=== PATIENT | female | born 1960 | race Caucasian/White ===

== ENCOUNTER → 2016-10-14 | Outpatient (CLI) | payer BC ==
[~2016-10-14] MED LIST: 00186-0372-20 IH; CARAFATE 1GM1 G PO; CIPRO 500MG TA500 MG PO; CLINDAMYCIN HC300 MG PO; COREG 6.256.25 MG/TA PO; FEXOFENADINE180 MG PO; HCTZ 25MG TAB25 MG PO; HCTZ 25MG25 MG PO; IMITREX100 MG PO; LEVAQUIN 750MG750 MG PO; LEVBID0.375 MG PO; LIPITOR 40MG TA40 MG PO; LORTAB 5/500 501 TAB PO; LOTENSIN 1010 MG/TAB PO; LOTENSIN40 MG PO; LOTREL 10 MG-201 CAP PO; LOTREL 10 MG-401 CAP PO; METOPROLOL25 MG PO; MIDRIN 325 MG-11 CAP PO; NORVASC 10MG10 MG PO; SPIRIVA RE2.5 MCG/Ac IH; SULFAMETH/TRIME1 TA1 PO; TOPAMAX50 MG PO; XANAX 0.5MG0.5 MG PO
== END ==
LOC: COL.VAS 15:21
DX: M79.89 Other specified soft tissue disorders (principal); M79.662 Pain in left lower leg

== ENCOUNTER → 2016-11-21 | Outpatient (CLI) | payer BC | LOC: COL.RAD 11:23 | DX: Z01.89 Encounter for other specified special examinations (principal) ==

== ENCOUNTER → 2016-11-24 | Outpatient (CLI) | payer BC | LOC: COL.RAD 13:10 | DX: I70.0 Atherosclerosis of aorta (principal); K66.8 Other specified disorders of peritoneum; M79.605 Pain in left leg; Z90.710 Acquired absence of both cervix and uterus | CPT/HCPCS: Q9967 ==

== ENCOUNTER 2017-02-11 23:33 | Emergency (ER) | payer BC ==
[~2017-02-11] VITALS: Ht 170.2 cm; Wt 109.1 kg
[~2017-02-11 23:33] MED LIST changes: -LIPITOR 40MG TA40 MG PO; +LIPITOR 80MG80 MG PO
[2017-02-11 23:41] VITALS: TEMP 96.9
[2017-02-12 00:21] LABS: BASO # 0.1 (0.0-0.2); BASO % 1.2 % (0.0-2.0); EOS # 0.4 (0.0-0.7); EOS % 6.1 % (0-4.0); GRAN # 3.7 (1.4-6.5); GRAN % 64.5 % (42.2-75.2); HEMOGLOBIN 12.4 g/dl (12.5-16.0); LYMPH # 1.2 (1.2-3.4); MEAN CELL VOLUME 96 fl (80.0-100.0); MEAN CORPUSCULAR HEMOGLOBIN 33 pg (27.0-31.0); MEAN CORPUSCULAR HGB CONC 34 g/dl (33.0-37.0); MEAN PLATELET VOLUME 8.6 fl (7.4-10.4); MONO # 0.5 (0.1-0.6); PLATELET COUNT 270 K/mm3 (130-400); RED BLOOD COUNT 3.75 M/mm3 (4.10-5.30); WHITE BLOOD COUNT 5.8 K/mm3 (4.8-10.8)
[2017-02-12 00:33] LABS: PROTHROMBIN TIME 11.3 SECONDS (9.7-12.8)
[2017-02-12 00:34] LABS: ADJUSTED CALCIUM 9.3 mg/dL (8.4-10.2); ALBUMIN 4.9 gm/dL (3.5-5.0); BILIRUBIN,TOTAL 0.5 mg/dL (0.0-1.0); CREATININE, serum 0.56 mg/dL (0.52-1.25); POTASSIUM 4.1 mmol/L (3.4-5.0); TOTAL PROTEIN 8.4 gm/dL (6.4-8.2)
[2017-02-12 00:35] LABS: PARTIAL THROMBOPLASTIN TIME 31.2 SECONDS (26.0-37.0)
[2017-02-12 02:50] VITALS: BP 117/62; PULSE 78
== END 2017-02-12 02:50 | disposition home or self-care (01) ==
LOC: COL.ER 23:33
PROVIDERS: Emergency Medicine
DX: S09.90XA Unspecified injury of head, initial encounter (principal); S01.112A Laceration without foreign body of left eyelid and periocular area, initial encounter; F10.129 Alcohol abuse with intoxication, unspecified; I10 Essential (primary) hypertension; Z87.891 Personal history of nicotine dependence; W10.9XXA Fall (on) (from) unspecified stairs and steps, initial encounter; W22.01XA Walked into wall, initial encounter; Y92.009 Unspecified place in unspecified non-institutional (private) residence as the place of occurrence of the external cause; Y90.7 Blood alcohol level of 200-239 mg/100 ml

== ENCOUNTER → 2017-07-08 | Outpatient (CLI) | payer BC | LOC: MC.RAD 11:40 | DX: Z12.31 Encounter for screening mammogram for malignant neoplasm of breast (principal); R92.8 Other abnormal and inconclusive findings on diagnostic imaging of breast ==

== ENCOUNTER → 2017-08-04 | Outpatient (CLI) | payer BC | LOC: MC.RAD 13:42 | DX: N60.02 Solitary cyst of left breast (principal) ==

== ENCOUNTER → 2019-10-10 | Outpatient (CLI) | payer OTHER | LOC: COL.RAD 10-06 08:30 | DX: K58.9 Irritable bowel syndrome, unspecified (principal); R79.89 Other specified abnormal findings of blood chemistry; R10.2 Pelvic and perineal pain ==

== ENCOUNTER → 2019-10-14 | Outpatient (CLI) | payer OTHER | LOC: COL.RAD 12:43 | DX: J44.9 Chronic obstructive pulmonary disease, unspecified (principal) | CPT/HCPCS: Q9967 ==

== ENCOUNTER 2019-11-06 00:19 | Inpatient (IN) | payer OTHER ==
[~2019-11-06] VITALS: Ht 170.2 cm; Wt 119.7 kg
[2019-11-06] VITALS (244 sets, daily range): BP systolic 129–151; BP diastolic 68–94; PULSE 70–79; TEMP 8.1; O2SAT 89–100
[2019-11-06 00:56] LABS: BASO # 0.1 (0.0-0.2); BASO % 0.6 % (0.0-2.0); EOS # 0.4 (0.0-0.7); EOS % 5.3 % (0-4.0); GRAN # 4.8 (1.4-6.5); GRAN % 59.9 % (42.2-75.2); HEMATOCRIT 27.9 % (37.0-47.0); HEMOGLOBIN 8.5 g/dl (12.5-16.0); LYMPH # 2.1 (1.2-3.4); LYMPH % 26.2 % (20.0-51.0); MEAN CELL VOLUME 78 fl (80.0-100.0); MEAN CORPUSCULAR HEMOGLOBIN 24 pg (27.0-31.0); MEAN CORPUSCULAR HGB CONC 31 g/dl (33.0-37.0); MEAN PLATELET VOLUME 10.6 fl (7.4-10.4); MONO # 0.6 (0.1-0.6); MONO % 7.7 % (1.7-9.3); PLATELET COUNT 249 K/mm3 (130-400); RED BLOOD COUNT 3.58 M/mm3 (4.10-5.30); REDCELL DISTRIBUTION WIDTH-CV 16.2 % (11.5-14.5)
[2019-11-06 01:01] LABS: INR 1.2 (0.8-3.0); PROTHROMBIN TIME 13.1 SECONDS (9.7-12.8)
[2019-11-06 01:05] LABS: ALANINE AMINOTRANSFERASE 81 U/L (4-34); ALBUMIN 3.8 gm/dL (3.5-5.0); ALKALINE PHOSPHATASE 78 U/L (50-136); ANION GAP 12 mmol/L (7-16); AST,SGOT 81 U/L (15-37); BILIRUBIN,TOTAL 0.5 mg/dL (0.0-1.0); BLOOD UREA NITROGEN 7 mg/dL (7-17); CALCIUM 8.1 mg/dL (8.4-10.2); CARBON DIOXIDE 19 mmol/L (22-30); CHLORIDE 105 mmol/L (98-107); GLUCOSE 95 mg/dL (74-106); LIPASE 202 U/L (23-300); SODIUM 135 mmol/L (137-145); TOTAL PROTEIN 6.9 gm/dL (6.4-8.2)
[2019-11-06 01:46] LABS: TROPONIN-I < 0.012 ng/mL (0.000-0.035)
[2019-11-06 03:04] LABS: PARTIAL THROMBOPLASTIN TIME 31.2 SECONDS (26.0-37.0)
[2019-11-06 03:43] LABS: IRON,SERUM 35 ug/dL (35-150)
[2019-11-06 03:52] LABS: TOTAL IRON BINDING CAPACITY 409 ug/dL (265-497)
[2019-11-06] MEDS ORDERED: LASIX 40MG TABL40 MG PO (03:56)
[2019-11-06] MEDS ORDERED: MOBIC15 MG PO (03:57)
[2019-11-06] MEDS ORDERED: NEXIUM 20MG20 MG PO (03:57)
[2019-11-06 04:14] LABS: MAGNESIUM 1.9 mg/dL (1.6-2.3)
[2019-11-06 04:27] LABS: TROPONIN-I 3 HR POST INITIAL < 0.012 ng/mL (0.000-0.034)
--- NOTE | 2019-11-06 04:32 | NUR ---
Report called over by NILA Whitt in the ED. Patient will be brought over shortly.
--- NOTE | 2019-11-06 04:50 | NUR ---
Patient arirves at this time via ED cart. Patient is able to walk to transfer to unit bed, but needs assistance of one for stability. Patient attached to unit monitoring equipment and vitals obtained. When asked if she is in pain, she denies and says that "it is just more annoying than anything" and does not rate pain. Admission assessment complete, see admission B for details. Patient has a purse with her, she does have $105.00 with her and refuses the safe. Patient requests to use the restroom, assisted with walking to the toilet and return to bed. Patient would now like to rest. Will continue to monitor. Call light within reach.
[2019-11-06] MEDS ORDERED: COREG12.5 MG PO (05:11)
[2019-11-06] MEDS ORDERED: ASPIRIN 81M81 MG/TA2 PO (05:12)
[2019-11-06 05:17] LABS: CALCIUM 9.8 mg/dL (8.4-10.2); CREATININE, serum 0.54 (0.52-1.25); POTASSIUM 4.1 mmol/L (3.4-5.0)
--- NOTE | 2019-11-06 07:15 | NUR ---
Bedside report given to NILA Hernandez
[2019-11-06 07:37] LABS: BASO % 0.5 % (0.0-2.0); EOS # 0.5 (0.0-0.7); EOS % 7.4 % (0-4.0); GRAN # 3.5 (1.4-6.5); GRAN % 57.3 % (42.2-75.2); LYMPH # 1.6 (1.2-3.4); LYMPH % 26.3 % (20.0-51.0); MEAN CELL VOLUME 77 fl (80.0-100.0); MEAN CORPUSCULAR HGB CONC 31 g/dl (33.0-37.0); MEAN PLATELET VOLUME 10.8 fl (7.4-10.4); MONO # 0.5 (0.1-0.6); MONO % 8.3 % (1.7-9.3); PLATELET COUNT 253 K/mm3 (130-400); RED BLOOD COUNT 3.95 M/mm3 (4.10-5.30); REDCELL DISTRIBUTION WIDTH-CV 16.3 % (11.5-14.5)
[2019-11-06 07:45] LABS: HEMATOCRIT 30.4 % (37.0-47.0); HEMOGLOBIN 9.4 g/dl (12.5-16.0); MEAN CORPUSCULAR HEMOGLOBIN 24 pg (27.0-31.0)
--- NOTE | 2019-11-06 11:18 | NUR ---
Plan: To return home with Quinten [phone] as care support and EMR. Patient does not currently have a DPOA, DPOA form left with patient to sign. Patient currently resides in [place]. Assess: SW's met with patient at her bedside. patient reports that she uses a walker, and that she is having hip surgery November 27. Patient reports that her PCP is Dr. Swain, and she does have an upcoming appointment although she was not sure when(she indicated having many). Patient reports that she gets her medications from [facility], with no concerns. patient denied having any care concerns, and a need for HHS at this time. Action: No additional concerns identified. SW may want to follow up to collect DPOA information.
--- NOTE | 2019-11-06 12:09 | NUR ---
at patients beside. He said he will order a lexiscan for patient.
--- NOTE | 2019-11-06 13:10 | NUR ---
Report given to NILA Lawrence.
--- NOTE | 2019-11-06 13:28 | NUR ---
Patient brought upstairs to medical floor in rm 309. RN notified and chart placed in correct location.
--- NOTE | 2019-11-06 17:32 | NUR ---
Pt up to room around 1330 from ICU. Pt A&O, independent in room, on room air. Pt has LAC IV that flushes w/o complications. Heart RRR, LS clear, BS activeX4. Pulses strong bilaterally. Pt denies chest pain, N/V/D. Pt educated on need for stool occult sample. Pt denies SOB. No further needs expressed at this time.
[2019-11-07] VITALS (12 sets, daily range): BP systolic 137–160; BP diastolic 62–85; PULSE 61–92; TEMP 97.6–98.8
--- NOTE | 2019-11-07 00:50 | NUR ---
Patient has rested well so far this shift. Continues on telemetry. INT noted to left AC. Requires SBA with ambulation. Patient required 4 units of Novolog at HS. Education provided on insulin as patient has never taken it before. Patient denies pain at time of assessment. NPO at midnight for Lexiscan in the morning. Denies any further needs. Will continue to monitor.
[2019-11-07 08:12] LABS: BASO % 0.6 % (0.0-2.0); EOS # 0.5 (0.0-0.7); EOS % 7.2 % (0-4.0); GRAN # 4.2 (1.4-6.5); GRAN % 62.5 % (42.2-75.2); LYMPH # 1.5 (1.2-3.4); LYMPH % 21.9 % (20.0-51.0); MEAN CELL VOLUME 78 fl (80.0-100.0); MEAN CORPUSCULAR HGB CONC 31 g/dl (33.0-37.0); MEAN PLATELET VOLUME 10.3 fl (7.4-10.4); MONO # 0.5 (0.1-0.6); MONO % 7.5 % (1.7-9.3); PLATELET COUNT 262 K/mm3 (130-400); RED BLOOD COUNT 4.12 M/mm3 (4.10-5.30); REDCELL DISTRIBUTION WIDTH-CV 16.6 % (11.5-14.5); RETIC # 0.06 M/mm3 (0.02-0.16); RETIC % 1.3 % (0.5-3.52)
[2019-11-07 08:13] LABS: HEMATOCRIT 32.3 % (37.0-47.0); HEMOGLOBIN 9.9 g/dl (12.5-16.0); MEAN CORPUSCULAR HEMOGLOBIN 24 pg (27.0-31.0)
[2019-11-07 08:21] LABS: ALBUMIN 4.5 gm/dL (3.5-5.0); BILIRUBIN,TOTAL 0.7 mg/dL (0.0-1.0); CREATININE, serum 0.57 (0.52-1.25); POTASSIUM 3.9 mmol/L (3.4-5.0); TOTAL PROTEIN 7.9 gm/dL (6.4-8.2)
--- NOTE | 2019-11-07 20:00 | NUR ---
Report received, assumed care for inspector machine cut glass. Assessment complete. A&Ox3. VS stable. Denies shortness of breath/chest pain/nausea. Tolerating PO. Voiding without difficulty. Plan of care discussed for NPO after midnight for heart cath in AM. Verbalizes understanding. Denies questions/concerns. Call light in reach. Will monitor.
--- NOTE | 2019-11-07 22:00 | NUR ---
Called with c/o left hip pain. Rating pain 6/10 on pain scale described as throbbing. Hydrocodone per dr order. Will monitor.
--- NOTE | 2019-11-07 23:45 | NUR ---
Called with c/o indigestion. Maalox given per order.
[2019-11-08] VITALS (17 sets, daily range): BP systolic 125–1434; BP diastolic 58–89; PULSE 58–71; TEMP 97–98.9
--- NOTE | 2019-11-08 06:08 | NUR ---
Rested well this shift. Did complain of hip pain x2-received hydrocodone per dr order. Has remained NPO since midnight except sips for taking medications. No c/o chest pain/shortness of breath/nausea. Did have some indigestion that was managed with maalox. Consent for heart cath signed and on front of charge. Call light in reach. Will monitor .
[2019-11-08 06:41] LABS: HEMATOCRIT 32.7 % (37.0-47.0); HEMOGLOBIN 9.9 g/dl (12.5-16.0); MEAN CELL VOLUME 78 fl (80.0-100.0); MEAN CORPUSCULAR HEMOGLOBIN 24 pg (27.0-31.0); MEAN CORPUSCULAR HGB CONC 30 g/dl (33.0-37.0); MEAN PLATELET VOLUME 10.7 fl (7.4-10.4); PLATELET COUNT 248 K/mm3 (130-400); REDCELL DISTRIBUTION WIDTH-CV 16.3 % (11.5-14.5)
[2019-11-08 06:47] LABS: CALCIUM 9.9 mg/dL (8.4-10.2); CREATININE, serum 0.59 (0.52-1.25); POTASSIUM 3.5 mmol/L (3.4-5.0)
[2019-11-08 08:34] LABS: INR 1.1 (0.8-3.0); PROTHROMBIN TIME 12.2 SECONDS (9.7-12.8)
[2019-11-08 08:37] LABS: PARTIAL THROMBOPLASTIN TIME 33.8 SECONDS (26.0-37.0)
--- NOTE | 2019-11-08 14:41 | NUR ---
PATIENT DOWN TO FOOT GATHERER ACCOMPANIED BY XAVIER DOTSON. AT TIME OF TRANSFER PATIENT A/O X 4. DENIES NEEDS OR CONCERNS. VERBAL REPORT GIVEN TO XAVIER. LEFT UNIT VIA BED.
--- NOTE | 2019-11-08 14:48 | NUR ---
SEE MERGE DOCUMENTATION FOR MEDICATION ADMINISTRATION TIMES AND INTRA/POST PROCEDURE SEDATION ASSESSMENTS. RIGHT HAND BARBEAU TEST POSITIVE.
--- NOTE | 2019-11-08 16:12 | NUR ---
PATIENT BACK TO ROOM FROM DAM OPERATOR. PATIENT A/O X 4. REPORTS C/O LEFT HIP PAIN. RIGHT GROIN ACESS SITE WNL. DRESSING CDI. ANGIO SEAL FOR CLOSURE PER DAM OPERATOR RN. SEE FLOW SHEET FOR FVS WNL. PATIENT TALKING ON PHONE TO . NO QUESTIONS OR CONCERNS AT THIS TIME.
--- NOTE | 2019-11-08 19:53 | NUR ---
Received report from NILA Ibrahim. PT laying flat in bed. A/Ox4. VSS. C/O tolerable pain to lt hip 06/06, prn pain meds adminsitered by day RN. Rt groin w/o complications, dressing intact, CDI, no hematoma observed, pedal pulse palpable. At 1940, pt slowly elevated HOB to 30-45 degrees. Site to rt groin intact, no bleeding. PT refused dinner tray but is eating sandwich tray as requested. IV to LFA intact, with fluids infusing, dressing CDI. Tele monitor in place. Rt radial with bandaid in place, w/o complications. Needs met at this time. Call light within reach.
--- NOTE | 2019-11-08 21:00 | NUR ---
SBA with use of walker to BR. Ambulated well w/o issue. Rt groin without bleeding. Call light within reach.
--- NOTE | 2019-11-08 22:44 | NUR ---
SBA to BR, indepedent and ambulatory. PRN pain meds adminsitered as requested for lt hip pain and rt groin pain, rate 7/10. Needs met. Call light within reach.
[2019-11-09] VITALS: BP 139/65; PULSE 64; TEMP 98.3
[2019-11-09 03:41] VITALS: BP 119/56; PULSE 62; TEMP 98
[2019-11-09 05:55] LABS: BASO # 0.1 (0.0-0.2); BASO % 0.7 % (0.0-2.0); EOS # 0.4 (0.0-0.7); EOS % 6.2 % (0-4.0); GRAN # 4.2 (1.4-6.5); GRAN % 61.8 % (42.2-75.2); LYMPH # 1.6 (1.2-3.4); LYMPH % 23.5 % (20.0-51.0); MEAN CELL VOLUME 78 fl (80.0-100.0); MEAN CORPUSCULAR HGB CONC 30 g/dl (33.0-37.0); MEAN PLATELET VOLUME 10.6 fl (7.4-10.4); MONO # 0.5 (0.1-0.6); MONO % 7.7 % (1.7-9.3); PLATELET COUNT 234 K/mm3 (130-400); RED BLOOD COUNT 3.84 M/mm3 (4.10-5.30); REDCELL DISTRIBUTION WIDTH-CV 16.2 % (11.5-14.5)
[2019-11-09 06:01] LABS: HEMATOCRIT 30.1 % (37.0-47.0); HEMOGLOBIN 9.1 g/dl (12.5-16.0); MEAN CORPUSCULAR HEMOGLOBIN 24 pg (27.0-31.0)
[2019-11-09 06:08] LABS: CALCIUM 9.5 mg/dL (8.4-10.2); CREATININE, serum 0.61 (0.52-1.25); POTASSIUM 3.8 mmol/L (3.4-5.0)
--- NOTE | 2019-11-09 06:15 | NUR ---
SBA to BR. RT groin w/o complications. IVF completed, switched to saline lock. Meds administered. No complaints made. Needs met. Call light within reach.
--- NOTE | 2019-11-09 06:52 | NUR ---
Report given to NILA Ibrahim.
[2019-11-09] MEDS ORDERED: FERROUS SU325 MG/TAB PO (07:08)
[2019-11-09] MEDS ORDERED: COREG12.5 MG PO (07:08)
[2019-11-09 07:45] VITALS: BP 134/62; PULSE 64; TEMP 98
[2019-11-09 08:00] VITALS: BP 134/62; PULSE 64; TEMP 98
--- NOTE | 2019-11-09 11:40 | NUR ---
First visit from the machinist mate. No needs right now.
[2019-11-09 11:49] VITALS: BP 127/62; PULSE 57; TEMP 98
--- NOTE | 2019-11-09 14:26 | NUR ---
PATIENT DC TO HOME VIA POV ACCOMPANIED BY SISTER MOLD RUNNER. AT TIME OF DC A/O X 4. DENIES NEEDS OR CONCERNS. PRINTED DC INSTRUCTIONS REVIEWED WITH PATIENT. ALL QUESTIONS ADDRESSED DURING REVIEW. ACKNOWLEDGES UNDERSTANDING. LEFT UNIT IN WC ACCOMPANIED BY DUSTIN MCKEON.
== END 2019-11-09 13:20 | disposition home or self-care (01) | DRG 287 ==
LOC: COL.ER 00:19 → MEDICAL 02:52 → ICU 02:52 → MEDICAL 13:17
PROVIDERS: Emergency Medicine; Internal Medicine; Physician Assistant; ADMIT Family Medicine
PROC: 4A023N7 Measurement of Cardiac Sampling and Pressure, Left Heart, Percutaneous Approach (ICD-10-PCS; principal; 2019-11-06)
PROC: B2111ZZ Fluoroscopy of Multiple Coronary Arteries using Low Osmolar Contrast (ICD-10-PCS; 2019-11-06)
DX: R07.9 Chest pain, unspecified (principal); Z68.41 Body mass index [BMI] 40.0-44.9, adult; I10 Essential (primary) hypertension; I25.10 Atherosclerotic heart disease of native coronary artery without angina pectoris; Z87.891 Personal history of nicotine dependence; E78.5 Hyperlipidemia, unspecified; E66.9 Obesity, unspecified; F41.9 Anxiety disorder, unspecified; M16.12 Unilateral primary osteoarthritis, left hip; F10.10 Alcohol abuse, uncomplicated; E11.42 Type 2 diabetes mellitus with diabetic polyneuropathy; Z66 Do not resuscitate; Z88.0 Allergy status to penicillin; Z88.8 Allergy status to other drugs, medicaments and biological substances; Z91.040 Latex allergy status; E87.6 Hypokalemia; D50.9 Iron deficiency anemia, unspecified; R60.0 Localized edema; R74.8 Abnormal levels of other serum enzymes; N28.9 Disorder of kidney and ureter, unspecified
CPT/HCPCS: 99222-AI; 99232-AI; 99239; A9500; C1760; C1894; C9113; J1644; J1815; J2060; J2250; J2785; J3010; J7030; Q9967

== ENCOUNTER 2020-01-24 11:11 | Emergency (ER) | payer OTHER ==
[~2020-01-24] VITALS: Ht 170.2 cm; Wt 115.0 kg
[2020-01-24 11:42] LABS: BASO % 0.4 % (0.0-2.0); EOS # 0.4 (0.0-0.7); EOS % 5.1 % (0-4.0); GRAN # 5.3 (1.4-6.5); GRAN % 68.4 % (42.2-75.2); HEMOGLOBIN 12.8 g/dl (12.5-16.0); LYMPH # 1.5 (1.2-3.4); LYMPH % 18.9 % (20.0-51.0); MEAN CELL VOLUME 89 fl (80.0-100.0); MEAN CORPUSCULAR HEMOGLOBIN 30 pg (27.0-31.0); MEAN CORPUSCULAR HGB CONC 34 g/dl (33.0-37.0); MEAN PLATELET VOLUME 10.2 fl (7.4-10.4); MONO # 0.6 (0.1-0.6); MONO % 7.1 % (1.7-9.3); PLATELET COUNT 208 K/mm3 (130-400); RED BLOOD COUNT 4.26 M/mm3 (4.10-5.30); REDCELL DISTRIBUTION WIDTH-CV 18.9 % (11.5-14.5)
[2020-01-24 11:47] LABS: PROTHROMBIN TIME 11.7 SECONDS (9.7-12.8)
[2020-01-24 11:50] LABS: PARTIAL THROMBOPLASTIN TIME 26.4 SECONDS (26.0-37.0)
[2020-01-24 11:56] LABS: ALANINE AMINOTRANSFERASE 102 U/L (4-34); ALBUMIN 4.6 gm/dL (3.5-5.0); ALKALINE PHOSPHATASE 108 U/L (50-136); ANION GAP 11 mmol/L (7-16); AST,SGOT 110 U/L (15-37); BILIRUBIN,TOTAL 0.6 mg/dL (0.0-1.0); BLOOD UREA NITROGEN 8 mg/dL (7-17); CALCIUM 9.5 mg/dL (8.4-10.2); CARBON DIOXIDE 26 mmol/L (22-30); CHLORIDE 99 mmol/L (98-107); CREATININE, serum 0.52 (0.52-1.25); GLUCOSE 142 mg/dL (74-106); LIPASE 137 U/L (23-300); SODIUM 136 mmol/L (137-145); TOTAL PROTEIN 7.7 gm/dL (6.4-8.2)
[2020-01-24 12:09] LABS: TROPONIN-I < 0.012 ng/mL (0.000-0.035)
[2020-01-24 14:33] VITALS: BP 180/88; PULSE 72; TEMP 98.2
== END 2020-01-24 14:40 | disposition home or self-care (01) ==
LOC: COL.ER 11:11
PROVIDERS: Emergency Medicine
DX: R07.89 Other chest pain (principal); E11.9 Type 2 diabetes mellitus without complications; E78.5 Hyperlipidemia, unspecified; I10 Essential (primary) hypertension; E66.9 Obesity, unspecified; Z68.39 Body mass index [BMI] 39.0-39.9, adult; Z79.82 Long term (current) use of aspirin; Z95.9 Presence of cardiac and vascular implant and graft, unspecified; Z88.0 Allergy status to penicillin; Z88.1 Allergy status to other antibiotic agents
CPT/HCPCS: J1170; Q9967

== ENCOUNTER → 2020-01-24 | Day surgery (SDC) | payer OTHER ==
[~2020-01-24] VITALS: Ht 170.2 cm; Wt 115.0 kg
[~2020-01-24] MED LIST changes: +ACETAMINOPHEN PO; +ASPIRIN 81M81 MG/TA2 PO; +BUTALBITAL PO; +CAFFEINE PO; +COREG12.5 MG PO; +FERROUS SU325 MG/TAB PO; +LASIX 40MG TABL40 MG PO; +MOBIC15 MG PO; +NEXIUM 20MG20 MG PO; +PROTONIX 40MG T40 MG PO
[2020-01-24 08:05] VITALS: BP 151/78; PULSE 68; TEMP 98.2
[2020-01-24 10:00] VITALS: BP 167/90; PULSE 64; TEMP 97.7
--- NOTE | 2020-01-24 10:00 | NUR ---
Pt returned via cart to [facility]. Pt ambulated to chair in room. present. Pts BP elevated, will recheck in 15 minutes. C/O shapr pain in chest/throat. Dr Quezada present and assessed pt. Pt instructed to let staff know if pain persists or worsens. Given iced water per request. Sitting up in chair with call light in reach.
[2020-01-24 10:15] VITALS: BP 157/86; PULSE 63
--- NOTE | 2020-01-24 10:15 | NUR ---
BP recheck consistent with initial admission BP. Pt tolerating sips of water and describes pain in her throat more like "when you scrape your knuckles on a grater". Pt offered popcicle, jello or ice cream to try to soothe throat, pt decline. Denied other needs or complaints at this time.
[2020-01-24 10:30] VITALS: BP 190/105; PULSE 62
[2020-01-24 10:34] VITALS: BP 214/118; PULSE 62
[2020-01-24 10:45] VITALS: BP 214/111; PULSE 62
--- NOTE | 2020-01-24 10:48 | NUR ---
Pts BP increasing. Dr Quezada notified of pts BP'S, c/o headache and no improvement of sharp pain in her esophagus. Dr Quezada recommended pt go to ED to be evaluated. Pt agreeable. Pt given dc packet s/p EGD and colonoscopy. present and aware of plan for pt. Pt was not in acute distress. Denied SOA, nausea or other complaint besides the above noted. Remained on room air. IV remains intact and patent to RAC.
--- NOTE | 2020-01-24 11:20 | NUR ---
Pt taken via wheelchair to ED registration then to [place] [facility]. Bedside report given to ED staff present to assume care of patient at this time.
== END ==
LOC: SDCO 07:27
DX: D12.5 Benign neoplasm of sigmoid colon (principal); K31.7 Polyp of stomach and duodenum; D50.9 Iron deficiency anemia, unspecified; R19.7 Diarrhea, unspecified; K64.0 First degree hemorrhoids; Z20.828 Contact with and (suspected) exposure to other viral communicable diseases; I25.10 Atherosclerotic heart disease of native coronary artery without angina pectoris; E78.5 Hyperlipidemia, unspecified; I10 Essential (primary) hypertension; F17.210 Nicotine dependence, cigarettes, uncomplicated; K21.9 Gastro-esophageal reflux disease without esophagitis; M19.90 Unspecified osteoarthritis, unspecified site; D64.9 Anemia, unspecified; F41.9 Anxiety disorder, unspecified; E11.42 Type 2 diabetes mellitus with diabetic polyneuropathy
CPT/HCPCS: J2704; J3010; J7030

== ENCOUNTER → 2020-04-25 | Outpatient (CLI) | payer OTHER, BC | LOC: COL.CARD 11:28 | DX: I10 Essential (primary) hypertension (principal) ==

== ENCOUNTER 2020-07-08 08:55 | Emergency (ER) | payer OTHER ==
[~2020-07-08] VITALS: Ht 170.2 cm; Wt 122.7 kg
[2020-07-08 09:08] VITALS: TEMP 98.7
[2020-07-08 09:46] VITALS: BP 132/78; PULSE 94
== END 2020-07-08 09:38 | disposition home or self-care (01) ==
LOC: COL.ER 08:55
DX: M25.561 Pain in right knee (principal); Z88.1 Allergy status to other antibiotic agents; Z88.5 Allergy status to narcotic agent; Z88.0 Allergy status to penicillin; Z79.82 Long term (current) use of aspirin

== ENCOUNTER 2021-12-03 00:02 | Emergency (ER) | payer OTHER ==
[~2021-12-03] VITALS: Wt 122.7 kg
[2021-12-03 00:04] VITALS: TEMP 98
[2021-12-03 00:21] LABS: BASO # 0.1 K/mm3 (0.0-0.2); BASO % 0.8 % (0.0-2.0); EOS # 0.3 K/mm3 (0.0-0.7); EOS % 3.8 % (0.0-4.0); GRAN # 5.2 K/mm3 (1.4-6.5); GRAN % 61.4 % (42.2-75.2); HEMOGLOBIN 10.4 g/dl (12.5-16.0); LYMPH # 2.2 K/mm3 (1.2-3.4); LYMPH % 25.5 % (20.0-51.0); MEAN CELL VOLUME 82 fl (80.0-100.0); MEAN CORPUSCULAR HEMOGLOBIN 27 pg (27-31); MEAN CORPUSCULAR HGB CONC 33 g/dl (33.0-37.0); MEAN PLATELET VOLUME 9.7 fl (7.4-10.4); MONO # 0.7 K/mm3 (0.1-0.6); MONO % 8.3 % (1.7-9.3); PLATELET COUNT 280 K/mm3 (130-400); RED BLOOD COUNT 3.81 M/mm3 (4.10-5.30); REDCELL DISTRIBUTION WIDTH-CV 15.6 % (11.5-14.5)
[2021-12-03 00:27] LABS: HEMATOCRIT 31.4 % (37.0-47.0)
[2021-12-03 00:48] LABS: ALBUMIN 4.2 gm/dL (3.4-4.8); BILIRUBIN,TOTAL 0.4 mg/dL (0.2-1.2); CALCIUM 9.4 mg/dL (8.4-10.2); CREATININE, serum 0.8 mg/dL (0.57-1.11); TOTAL PROTEIN 7.6 gm/dL (6.2-8.1)
[2021-12-03 02:46] LABS: TROPONIN-I 0.022 ng/mL (0.00-0.033)
[2021-12-03 04:00] VITALS: BP 116/52; PULSE 86
[2021-12-03] MEDS ORDERED: FLEXERIL5 MG PO (04:14)
== END 2021-12-03 04:25 | disposition home or self-care (01) ==
LOC: COL.ER 00:02
PROVIDERS: Personal Emergency Response Attendant
DX: I51.7 Cardiomegaly (principal); R07.9 Chest pain, unspecified; Z87.891 Personal history of nicotine dependence; Z98.61 Coronary angioplasty status
CPT/HCPCS: J2360; J7030